=== PATIENT | female | born 1980 | race Caucasian/White ===

== ENCOUNTER 2023-08-01 08:55 | Emergency (ER) | payer OTHER ==
[2023-08-01] MEDS ORDERED: Ketorolac Tromethamine 60 MG/2 ML VIAL ONE (09:19)
[2023-08-01] MEDS ORDERED: Orphenadrine Citrate 60 MG/2 ML VIAL ONE (10:15)
== END 2023-08-01 10:23 | disposition home or self-care (01) ==
LOC: NAV ERS 08:55
DX: M54.6 Pain in thoracic spine (principal); M25.512 Pain in left shoulder; M25.511 Pain in right shoulder; M54.2 Cervicalgia; F17.290 Nicotine dependence, other tobacco product, uncomplicated
CPT/HCPCS: 72125; 96372; J1885; J2360